=== PATIENT | male | born 1985 | race Caucasian/White ===

== ENCOUNTER 2017-03-09 20:33 | Emergency (ER) | payer OTHER ==
--- NOTE | 2017-03-09 22:18 | ED ORDER SUMMARY ---
..... Patient: JAIDEN DURAN OrderSheet [facility] VisitID: [id number] [place] [address] 31y, M Registration Date/Time: 03/09/2017 ORDER SHEET Weight: 117.9 kg (stated) Allergies: Amoxicillin GENERAL ORDERS: Culture, Strep Screen Urgent (:03/09/2017 Yanelis Gorman per protocol) (21:35 LMuller) MEDICATION ORDERS: Tylenol PO 1,000 mg (NOW) (22:03/09/2017 Maurice BA) (22:20 DDavis R.N.) Prednisone PO 60 mg (NOW) (:03/09/2017 Maurice BA) (22:20 DDavis R.N.) Cleocin PO 300 mg (NOW) (:03/09/2017 Maurice BA) (22:20 DDavis R.N.) GI Cocktail WHITE PO 30 mL with Lidocaine Viscous Mouth/Throat 15 mL, Maalox Plus Oral 15 mL (NOW) (:03/09/2017 Maurice BA) (22:21 DDavis R.N.) IV FLUIDS: ORDER SHEET NOTES: [Electronically signed by Abby Garcia R.N. (:03/09/2017)] [Electronically signed by Priscilla Dubois MD (10:07 03/23/2017)] [Electronically locked/signed by Abby Garcia R.N. (:03/09/2017)]
--- NOTE | 2017-03-09 22:18 | ED ORDER SUMMARY ---
..... Patient: JAIDEN DURAN OrderSheet [facility] VisitID: [id number] [place] [address] 31y, M Registration Date/Time: 03/09/2017 ORDER SHEET Weight: 117.9 kg (stated) Allergies: Amoxicillin GENERAL ORDERS: Culture, Strep Screen Urgent (:03/09/2017 Yanelis Gorman per protocol) (21:35 LMuller) MEDICATION ORDERS: Tylenol PO 1,000 mg (NOW) (22:03/09/2017 Maurice BA) (22:20 DDavis R.N.) Prednisone PO 60 mg (NOW) (:03/09/2017 Maurice BA) (22:20 DDavis R.N.) Cleocin PO 300 mg (NOW) (:03/09/2017 Maurice BA) (22:20 DDavis R.N.) GI Cocktail WHITE PO 30 mL with Lidocaine Viscous Mouth/Throat 15 mL, Maalox Plus Oral 15 mL (NOW) (:03/09/2017 Maurice BA) (22:21 DDavis R.N.) IV FLUIDS: ORDER SHEET NOTES: [Electronically signed by bAby Garcia R.N. (:03/09/2017)] [Electronically signed by Priscilla Dubois MD (10:07 03/23/2017)] [Electronically locked/signed by Abby Garcia R.N. (:03/09/2017)]
--- NOTE | 2017-03-09 22:18 | ED NURSING NOTES ---
Clinical Report - Nurses [facility] [address] [place] [address] 03/09/2017 20:35 Patient: JAIDEN DURAN TRIAGE Triage time 21:22. Acuity: LEVEL 4. Chief Complaint: SWEATS and (sore throat). Alert. LONI COMA SCORE: Mobile Coma Scale: 15- eyes open spontaneously (4); best verbal response- oriented x 4 (5); best motor response- obeys commands (6). --21:27 Raudel Sanders R.N. 21:22 03/09/17. BP: 140/88. HR: 91. RR: 16. O2 saturation: 97% on room air. Temp: 99.1 F (oral). Pain level now: 810. --21:27 Raudel Sanders R.N. Weight: 117.9 kg stated. Height/Length: 75 inches Per Patient. BMI: 32.5. --21:22 Raudel Sanders R.N. Medications Humara Injection. --21:23 Raudel Sanders R.N. Allergies Amoxicillin. --21:23 Raudel Sanders R.N. History Arrived by private vehicle. Historian: patient. Unaccompanied. SOCIAL HX: Never smoker. Occasional alcohol use. History of weekly drug use: marijuana. FALL RISK ASSESSMENT: Fall risk assessment completed. No fall risk identified. NUTRITIONAL RISK ASSESSMENT: The nutritional risk assessment revealed no deficiencies. FUNCTIONAL ASSESSMENT: Functional assessment: no impairments noted. LEARNING NEEDS ASSESSMENT: The learning needs assessment revealed no barriers. --21:27 Raudel Sanders R.N. Onset. (2 days ago). --21:28 Raudel Sanders R.N. ( pt states that he is on gina). --21:29 Raudel Sanders R.N. PROBLEMS: Psoriasis. --21:24 Raudel Sanders R.N. ADDITIONAL SURGERIES: no known surgeries. Interventions ID band on patient. To room. --21:27 Raudel Sanders R.N. PHYSICAL ASSESSMENT Ambulatory to room. ( tonsils reddened and enlarged, airway patent). GENERAL / NEURO / PSYCH: Alert. Oriented X 4. HEENT: Mucous membranes are pink. RESPIRATORY: Respirations not labored. Chest nontender. CVS: Capillary refill less than 2 seconds. SKIN: Skin intact. Skin is warm and dry. --21:28 Raudel Sanders R.N. NURSING PROGRESS NOTES ( Lab called to tell me that the patient's strep test is positive. I notified the ER physician.). --22:04 Raudel Sanders R.N. 22:20 03/09/2017 Tylenol (Acetaminophen) PO Tablets 1000 mg given. Allergies verified and confirmed 5 rights. --22:20 Raudel Sanders R.N. 22:20 03/09/2017 Prednisone PO Tablets 60 mg given. Allergies verified and confirmed 5 rights. --22:20 Raudel Sanders R.N. 22:20 03/09/2017 Cleocin (Clindamycin HCl) PO Capsules 300 mg given. Allergies verified and confirmed 5 rights. --22:20 Raudel Sanders R.N. 22:21 03/09/2017 GI COCKTAIL WHITE (Simethicone) PO Oral Suspension 30 mL given. Allergies verified and confirmed 5 rights. --22:21 Raudel Sanders R.N. DISPOSITION / DISCHARGE Condition at departure: stable. No learning barriers present. Discharge instructions provided and reviewed with the patient. Reviewed medication(s) side effects, precautions, dosing and course information. Prescription(s) given to the patient. Work note given. Patient verbalized understanding. Written instructions provided in Romanian. The patient was discharged home. He left the Emergency Department ambulatory and via private vehicle. --22:31 Abby Garcia R.N. 22:30 03/09/17. BP: 135/86. HR: 85. RR: 15 (regular and unlabored). O2 saturation: 97%. Temp: deferred. Hernandes-Thibodeaux pain scale: 4/10. --22:31 Abby Garcia R.N. Locked/Released at 03/09/2017 22:31 by Abby Garcia R.N.
--- NOTE | 2017-03-09 22:18 | ED CLINICAL REPORT ---
Clinical Report - Physicians/Mid Levels [facility] [address] [place] [address] 03/09/2017 20:35 Patient: JAIDEN DURAN Time Seen: 21:12. Arrived- By private vehicle. Historian- patient. HISTORY OF PRESENT ILLNESS Chief Complaint: SORE THROAT. This started yesterday and is still present. Pain described as moderate. The patient has had a sore throat. No mouth sores, nasal discharge or congestion, ear pain or toothache. No swollen jaw or face, jaw pain or facial pain. Similar symptoms previously: Recent medical care: Not recently seen/assessed. REVIEW OF SYSTEMS No fever, eye discomfort, cough, difficulty breathing or chest pain. No nausea, diarrhea, abdominal pain, difficulty with urination or headache. No fainting episodes, joint pain, skin rash, enlarged lymph nodes or vomiting. All systems otherwise negative, except as recorded above. PAST HISTORY Problems: Psoriasis. Additional Surgeries: no known surgeries. Medications: Humara Injection. Allergies: Amoxicillin. SOCIAL HISTORY Never smoker. Alcohol use. History of drug use: marijuana. ADDITIONAL NOTES The nursing notes have been reviewed. PHYSICAL EXAM Vital Signs: 03/09/2017 21:22 BP: 140/88. HR: 91. RR: 16. O2 saturation: 97%. Temp: 99.1 F. Pain level now: 8/10. Have been reviewed. Appearance: Alert. No acute distress. Head: Normal external inspection. Eyes: Pupils equal, round and reactive to light. Conjunctivae and eyelids normal. ENT: Nose normal. Pharyngeal erythema. Lips normal. Gums normal. No trismus present. Uvula midline. No tonsillar exudate. Neck: Normal inspection. Trachea midline. No adenopathy. Neck supple. CVS: Normal heart rate and rhythm. Heart sounds normal. Pulses normal. Respiratory: No respiratory distress. Breath sounds normal. Abdomen: Soft and nontender. No organomegaly. Skin: Normal skin color. No rash. Normal skin turgor. Extremities: Extremities exhibit normal ROM. Extremities nontender. Neuro: No motor deficit. No sensory deficit. (Grossly oriented.). LABS, X-RAYS, AND EKG Laboratory Tests: Culture, Strep Screen: (PAT: 03/09/2017 21:29) ( [id number] 03/09/2017 22:04) Final results Test Result Flag Units (Reference) RAPID STREP SCREEN - THROAT CALLED TO: MÓNICA FRANCIS,ER -- DATE: 03/09/17 POSITIVE SCREEN: RAPID STREP SCREEN: POSITIVE FOR GROUP A STREP . Pulse Oximetry: 03/09/2017 21:22 O2 saturation: 97%. (FIO2 - room air). Interpretation: normal. PROGRESS AND PROCEDURES Course of Care: PT was given Tylenol, prednisone, and a GI cocktail for symptomatic relief, and clindamycin for treatment of his strep pharyngitis. Patient counseled in person regarding the patient's stable condition, test results, diagnosis and need for follow-up. Concerns were addressed. Old medical records reviewed. Disposition: Discharged. Condition: stable and improved. CLINICAL IMPRESSION Acute streptococcal pharyngitis INSTRUCTIONS Do not work tomorrow. Drink plenty of fluids. Warnings: GENERAL WARNINGS: Return or contact your physician immediately if your condition worsens or changes unexpectedly, if not improving as expected, or if other problems arise. Your Current Medications: CONTINUE TAKING THE FOLLOWING MEDICATIONS: Humara Injection*. Prescription Medications: Cleocin 300 mg: take 1 capsule orally every 6 hours for 7 days. No refill. Substitution is permissible. Hydrocodone / APAP Liquid 7.5mg/325mg/15 mL: take ten (10) mL orally every 4 hours as needed for pain. Dispense one hundred fifty (150) mL. No refill. Follow-up: Follow up with your doctor in seven days if not better. Understanding of the discharge instructions verbalized by patient. (Electronically signed by Priscilla Dubois MD 03/23/2017 10:07)
--- NOTE | 2017-03-23 10:07 | ED MAR SUMMARY ---
..... Medication Administration Record [facility] [address] [place] [address] Patient: JAIDEN DURAN Visit ID: [id number] 31y, M Weight: 117.9 kg Height/Length: 75 in BMI: 32.5 ALLERGIES: Amoxicillin Given :03/09/2017 Raudel Sanders R.N. Medication Administered: TYLENOL [PO] (ACETAMINOPHEN), Dose: 1000 mg Tablets PO. Medication Ordered: Tylenol PO 1,000 mg (NOW). Given 03/09/2017 Raudel Sanders R.N. Medication Administered: PREDNISONE [PO], Dose: 60 mg Tablets PO. Medication Ordered: Prednisone PO 60 mg (NOW). Given 03/09/2017 Raudel Sanders R.N. Medication Administered: CLEOCIN [PO] (CLINDAMYCIN HCL), Dose: 300 mg Capsules PO. Medication Ordered: Cleocin PO 300 mg (NOW). Given 03/09/2017 Raudel Sanders R.N. Medication Administered: GI COCKTAIL WHITE [PO] (SIMETHICONE), Dose: 30 mL Oral Suspension PO. Medication Ordered: GI Cocktail WHITE PO 30 mL with Lidocaine Viscous Mouth/Throat 15 mL, Maalox Plus Oral 15 mL (NOW).
--- NOTE | 2017-03-23 10:07 | ED MED RECONCILIATION SUMMARY ---
Patient: JAIDEN DURAN Medication Reconciliation Report [facility] VisitID: [id number] [place] [address] 31y, M Registration Date/Time: 03/09/2017 Weight: 117.9 kg Height/Length: 75 in. BMI: 32.5 ALLERGIES: Amoxicillin The patient's Home Medications are listed below: CONTINUE TAKING THE FOLLOWING MEDICATIONS: Humara Injection The source(s) of the original Home Medication information: Not obtained. The following Medications were given to the patient in the Emergency Department: Tylenol [PO] PO 1000 mg, administered: 03/09/2017 10:20:00 PM Prednisone [PO] PO 60 mg, administered: 03/09/2017 10:20:00 PM Cleocin [PO] PO 300 mg, administered: 03/09/2017 10:20:00 PM GI COCKTAIL WHITE [PO] PO 30 mL, administered: 03/09/2017 10:21:00 PM The following Medications were prescribed to the patient: Cleocin 300 mg: take 1 capsule orally every 6 hours for 7 days. No refill. Substitution is permissible. -- Priscilla Dubois MD Hydrocodone / APAP Liquid 7.5mg/325mg/15 mL: take ten (10) mL orally every 4 hours as needed for pain. Dispense one hundred fifty (150) mL. No refill. -- Prisiclla Dubois MD
--- NOTE | 2017-03-23 10:07 | ED MAR SUMMARY ---
..... Medication Administration Record [facility] [address] [place] [address] Patient: JAIDEN DURAN Visit ID: [id number] 31y, M Weight: 117.9 kg Height/Length: 75 in BMI: 32.5 ALLERGIES: Amoxicillin Given :03/09/2017 Raudel Sanders R.N. Medication Administered: TYLENOL [PO] (ACETAMINOPHEN), Dose: 1000 mg Tablets PO. Medication Ordered: Tylenol PO 1,000 mg (NOW). Given 03/09/2017 Raudel Sanders R.N. Medication Administered: PREDNISONE [PO], Dose: 60 mg Tablets PO. Medication Ordered: Prednisone PO 60 mg (NOW). Given 03/09/2017 Raudel Sanders R.N. Medication Administered: CLEOCIN [PO] (CLINDAMYCIN HCL), Dose: 300 mg Capsules PO. Medication Ordered: Cleocin PO 300 mg (NOW). Given 03/09/2017 Raudel Sanders R.N. Medication Administered: GI COCKTAIL WHITE [PO] (SIMETHICONE), Dose: 30 mL Oral Suspension PO. Medication Ordered: GI Cocktail WHITE PO 30 mL with Lidocaine Viscous Mouth/Throat 15 mL, Maalox Plus Oral 15 mL (NOW).
--- NOTE | 2017-03-23 10:07 | ED DISCHARGE INSTRUCTIONS ---
Patient: JAIDEN DURAN General Instructions [facility] VisitID: [id number] [place] [address] 31y, M Registration Date/Time: 03/09/2017 Acute streptococcal pharyngitis INSTRUCTIONS Do not work tomorrow. Drink plenty of fluids. Warnings: GENERAL WARNINGS: Return or contact your physician immediately if your condition worsens or changes unexpectedly, if not improving as expected, or if other problems arise. Your Current Medications: CONTINUE TAKING THE FOLLOWING MEDICATIONS: Humara Injection*. Prescription Medications: Cleocin 300 mg: take 1 capsule orally every 6 hours for 7 days. No refill. Substitution is permissible. Hydrocodone / APAP Liquid 7.5mg/325mg/15 mL: take ten (10) mL orally every 4 hours as needed for pain. Dispense one hundred fifty (150) mL. No refill. Follow-up: Follow up with your doctor in seven days if not better. Understanding of the discharge instructions verbalized by patient. ADDITIONAL INFORMATION Pharyngitis: Strep [Confirmed] Your test for strep throat was positive. Strep throat is a contagious illness. It is spread by coughing, kissing or by touching others after touching your mouth or nose. Symptoms include throat pain which is worse with swallowing, aching all over, headache and fever. You will be treated with an antibiotic which should make you start to feel better within 1-2 days. Home Care: Rest at home and drink plenty of fluids to avoid dehydration. No school or work for the first two days on antibiotics. You will not be contagious after this time and if you are feeling better, you can return to school or work. Take your antibiotics for a full 10 days, even if you feel better after the first few days of treatment. This is very important to prevent heart or kidney disease that can result as a complication of untreated strep throat infection. Children: Use acetaminophen (Tylenol) for fever, fussiness or discomfort. In infants over six months of age, you may use ibuprofen (Children's Motrin) instead of Tylenol. [NOTE: If your child has chronic liver or kidney disease or ever had a stomach ulcer or GI bleeding, talk with your doctor before using these medicines.] (Aspirin should never be used in anyone under 18 years of age who is ill with a fever. It may cause severe liver damage.)Adults: You may use acetaminophen (Tylenol) or ibuprofen (Motrin, Advil) to control pain or fever, unless another medicine was prescribed for this. [NOTE: If you have chronic liver or kidney disease or ever had a stomach ulcer or GI bleeding, talk with your doctor before using these medicines.] Throat lozenges or sprays (Chloraseptic and others) will reduce pain. Gargling with warm salt water will also reduce throat pain. Dissolve 1/2 teaspoon of salt in 1 glass of warm water. This is especially useful just before meals. Follow Up with your doctor or as directed by our staff if you are not improving over the next week. Get Prompt Medical Attention if any of the following occur: Fever of 100.4F (38C) oral or higher, not better with fever medication New or worsening ear pain, sinus pain or headache Painful lumps in the back of your neck Unable to swallow liquids or open your mouth wide due to throat pain Trouble breathing or noisy breathing Muffled voice New rash You have been given the following additional information: Pharyngitis, Strep (Confirmed) Do not work tomorrow. (Electronically signed by Priscilla Dubois MD 03/23/2017 10:07)
--- NOTE | 2017-03-23 10:07 | ED MED RECONCILIATION SUMMARY ---
Patient: JAIDEN DURAN Medication Reconciliation Report [facility] VisitID: [id number] [place] [address] 31y, M Registration Date/Time: 03/09/2017 Weight: 117.9 kg Height/Length: 75 in. BMI: 32.5 ALLERGIES: Amoxicillin The patient's Home Medications are listed below: CONTINUE TAKING THE FOLLOWING MEDICATIONS: Humara Injection The source(s) of the original Home Medication information: Not obtained. The following Medications were given to the patient in the Emergency Department: Tylenol [PO] PO 1000 mg, administered: 03/09/2017 10:20:00 PM Prednisone [PO] PO 60 mg, administered: 03/09/2017 10:20:00 PM Cleocin [PO] PO 300 mg, administered: 03/09/2017 10:20:00 PM GI COCKTAIL WHITE [PO] PO 30 mL, administered: 03/09/2017 10:21:00 PM The following Medications were prescribed to the patient: Cleocin 300 mg: take 1 capsule orally every 6 hours for 7 days. No refill. Substitution is permissible. -- Priscilla Dubois MD Hydrocodone / APAP Liquid 7.5mg/325mg/15 mL: take ten (10) mL orally every 4 hours as needed for pain. Dispense one hundred fifty (150) mL. No refill. -- Priscilla Dubois MD
== END 2017-03-09 22:32 | disposition home or self-care (01) ==
LOC: ED SRH 20:33
DX: J02.0 Streptococcal pharyngitis (principal); B95.0 Streptococcus, group A, as the cause of diseases classified elsewhere; Z88.1 Allergy status to other antibiotic agents; Z79.899 Other long term (current) drug therapy
CPT/HCPCS: 90154